=== PATIENT | male | born 1960 | race Hispanic/Latino ===

== ENCOUNTER → 2020-03-27 | Outpatient (CLI) | payer MEDICAID | END | disposition home or self-care (01) | LOC: RAH 09:47 | PROVIDERS: ATTEND Internal Medicine Cardiovascular Disease | DX: I08.3 Combined rheumatic disorders of mitral, aortic and tricuspid valves (principal); R94.31 Abnormal electrocardiogram [ECG] [EKG]; I10 Essential (primary) hypertension | CPT/HCPCS: 93306; 93356 ==

== ENCOUNTER → 2020-05-07 | Outpatient (CLI) | payer MEDICAID ==
[~2020-05-07] VITALS: Ht 167.6 cm; Wt 96.7 kg
[~2020-05-07] MED LIST: CARV3.12 PO; IBUP-2070 PO; INSLAN SQ; LISI-613 PO; OMEP-420 PO; SAXA1TBM2 PO; TRAM100T40 PO
[2020-05-07 14:09] LABS: BASOPHILS % (AUTO) 0.7 % (0.0-5.0); EOSINOPHILS % (AUTO) 1.9 % (0.0-8.0); HEMATOCRIT 29.2 % (42-54); LYMPHOCYTES % (AUTO) 20.2 % (21.0-51.0); MEAN CORPUSCULAR HEMOGLOBIN 21.8 pg (27.0-33.0); MEAN CORPUSCULAR HGB CONC 30.1 g/dL (32.0-36.0); MEAN CORPUSCULAR VOLUME 72.3 fL (79-99); MONOCYTES % (AUTO) 9.5 % (3.0-13.0); NEUTROPHILS % (AUTO) 67.4 % (40.0-77.0); PLATELET COUNT (AUTO) 184 K/uL (130-400); RED BLOOD CELL COUNT(AUTO) 4.04 MIL/uL (4.50-6.20); RED CELL DISTRIBUTION WIDTH 15.5 % (11.0-15.5)
[2020-05-07 14:13] LABS: APPEARANCE,URINE Clear (CLEAR); BILIRUBIN,URINE Negative (NEGATIVE); COLOR,URINE Yellow (YELLOW); GLUCOSE, URINE (UA) Negative (NEGATIVE); KETONES,URINE Negative (NEGATIVE); LEUKOCYTE ESTERASE ,URINE Negative (NEGATIVE); NITRATE,URINE Negative (NEGATIVE); OCCULT BLOOD,URINE Negative (NEGATIVE); PROTEIN,URINE Negative (NEGATIVE)
[2020-05-07 14:24] LABS: INR 1.17 (0.85-1.15); PARTIAL THROMBOPLASTIN TIME 31.4 SEC (26.3-35.5); PROTHROMBIN TIME 12.6 SEC (9.6-11.6)
[2020-05-07 14:26] LABS: CREATININE 1.1 mg/dL (0.5-1.5); POTASSIUM 3.6 mmol/L (3.5-5.1)
--- NOTE | 2020-05-08 10:08 | NUR ---
LABS ABNORMAL LABS INCLUDING HEMOGLOBIN AND HEMATOCRIT FAXED TO [facility] FOR REVIEW.
== END | disposition home or self-care (01) ==
LOC: DAH 10:00 → EDSTATUS 12:00
PROVIDERS: ATTEND Internal Medicine Cardiovascular Disease
DX: Z01.810 Encounter for preprocedural cardiovascular examination (principal); I10 Essential (primary) hypertension; E11.9 Type 2 diabetes mellitus without complications; R07.9 Chest pain, unspecified; R06.09 Other forms of dyspnea; R93.1 Abnormal findings on diagnostic imaging of heart and coronary circulation; Z79.899 Other long term (current) drug therapy; Z79.4 Long term (current) use of insulin; Z98.890 Other specified postprocedural states; Z82.49 Family history of ischemic heart disease and other diseases of the circulatory system; Z88.8 Allergy status to other drugs, medicaments and biological substances; Z79.01 Long term (current) use of anticoagulants
CPT/HCPCS: 36415; 71045; 80048; 81003; 85025; 85610; 85730; 93005

== ENCOUNTER → 2020-10-26 | Outpatient (CLI) | payer MEDICAID ==
[~2020-10-26] MED LIST changes: -LISI-613 PO; +LISI20TA24 PO
== END | disposition home or self-care (01) ==
LOC: RAH 09:47
PROVIDERS: ATTEND Internal Medicine Cardiovascular Disease
DX: R06.02 Shortness of breath (principal)
CPT/HCPCS: 93306; 93356

== ENCOUNTER 2024-05-20 02:58 | Emergency (ER) | payer MEDICARE ==
[~2024-05-20] VITALS: Ht 170.2 cm; Wt 91.6 kg
[2024-05-20 02:59] VITALS: BP 160/82; PULSE 71; RESP 18; TEMP 98.2
== END 2024-05-20 03:21 | disposition home or self-care (01) ==
LOC: EDH 02:58
DX: S09.8XXA Other specified injuries of head, initial encounter (principal); E11.9 Type 2 diabetes mellitus without complications; I10 Essential (primary) hypertension; Z79.4 Long term (current) use of insulin; Z79.84 Long term (current) use of oral hypoglycemic drugs; Z79.899 Other long term (current) drug therapy; Z88.1 Allergy status to other antibiotic agents; W18.39XA Other fall on same level, initial encounter; Y93.89 Activity, other specified; Y92.89 Other specified places as the place of occurrence of the external cause; Y99.8 Other external cause status
CPT/HCPCS: 99281